=== PATIENT | female | born 1975 | race African-American/Black ===

== ENCOUNTER 2017-04-24 20:51 | Emergency (ER) | payer OTHER ==
[~2017-04-24] VITALS: Ht 162.6 cm; Wt 54.4 kg
[~2017-04-24 20:51] MED LIST: ALPRAZOLAM; AMBIEN 5 MG TABL5 M1 PO; AMBIEN PO; AMOXICILLIN875 MG PO; ATIVAN0.5 MG PO; BACTRIM DS TAB1 EACH PO; BENADRYL25 MG PO; CARISOPRODOL; CATAPRES-TTS 10.1 MG; CELEXA40 MG; CLONAZEPAM 1 MG1 M1; CLONAZEPAM 1 MG1 M1 PO; CLONIDINE0.1; DAZIDOX10 MG PO; DEPAKOTE ER500 MG PO; DILAUDID 4 MG TA4 M1 PO; FENTANYL PA50 MCG/HR TP; FLEXERIL; FLEXERIL PO; HYDROXYZINE HCL10 M1; IBUPROFEN 600600 M1 PO; KEPPRA 500 MG500 M1 PO; NORCO 10-325 T1 EACH; NORCO 5-325 TA1 EACH PO; OXYCONTIN10 M1 PO; PERCOCET 5-3251 EACH PO; POTASSIUM20 PO; PROPRANOLOL 8080 MG PO; PYRIDIUM200 MG PO; REMERON15 M1; SEROQUEL 100 M100 M1; SEROQUEL 100 M100 M1 PO; SEROQUEL XR50 MG; SKELAXIN; TIZANIDINE HCL 22 M1; TRAMADOL 50 MG50 MG; TYLENOL CODEINE; ULTRAM 50MG TAB50 MG PO; VISTARIL 25 MG25 M1 PO; XANAX 0.25 MG0.25 MG PO; XANAX 0.5 MG0.5 M1 PO; XANAX 0.5 MG0.5 MG PO; ZOFRAN ODT4 MG PO
[2017-04-24] MEDS ORDERED: SEROQUEL 25 MG25 M1 PO (21:04)
[2017-04-24] MEDS ORDERED: HALOPERIDOL 1 MG1 MG PO (21:04)
[2017-04-24] MEDS ORDERED: KLONOPIN1 MG PO (21:05)
[2017-04-24] MEDS ORDERED: DEPAKOTE250 MG PO (21:05)
[2017-04-24] MEDS ORDERED: HYDROCODONE-APA1 TA1 PO (21:06)
[2017-04-24] MEDS ORDERED: B12INJ IM (21:06)
[2017-04-24] MEDS ORDERED: IRON325 PO (21:07)
[2017-04-24 21:33] LABS: URINE BILIRUBIN NEGATIVE (Negative); URINE BLOOD NEGATIVE (Negative); URINE COLOR YELLOW; URINE GLUCOSE-RANDOM* NEGATIVE (Negative); URINE KETONES NEGATIVE (Negative); URINE LEUKOCYTES-REFLEX NEGATIVE (Negative); URINE PROTEIN (DIPSTICK) NEGATIVE (Negative); URINE UROBILINOGEN 0.2 E.U./dl (0.2-1.0)
[2017-04-24 21:42] LABS: AMP/METHAMP Negative (Negative); BARBITURATES Negative (Negative); BENZODIAZEPINES Negative (Negative); COCAINE Negative (Negative); METHADONE Negative (Negative); OPIATES Negative (Negative); PCP Negative (Negative); THC Negative (Negative)
[2017-04-24 22:06] LABS: ABSOLUTE NEUTROPHILS 5.3 thou/uL (1.4-8.2); BASOPHILS 0.4 % (0.0-2.0); HEMATOCRIT 36.2 % (37.0-47.0); HEMOGLOBIN 12.2 gm/dL (12.0-15.0); LYMPHOCYTES 26.3 % (24.0-44.0); MCH 30.3 pg (26.0-34.0); MCHC 33.7 g/dL (28.0-37.0); MCV 89.8 fL (80.0-100.0); MONOCYTES 9.2 % (1.0-8.0); PLATELET COUNT 375 thou/uL (150-400); POLYS 63.1 % (36.0-66.0); RBC 4.03 mil/uL (4.20-5.00); WBC 8.3 thou/uL (4.0-11.0)
[2017-04-24 22:08] LABS: MANUAL DIFF NO
[2017-04-24 22:16] LABS: ANION GAP 5 mmol/L (7-16); BUN 14 mg/dL (7-18); CALCIUM 8.8 mg/dL (8.5-10.1); CHLORIDE 106 mmol/L (98-107); CO2 29 mmol/L (21-32); CREATININE 0.8 mg/dL (0.6-1.0); GLUCOSE 84 mg/dL (74-106); POTASSIUM 4.3 mmol/L (3.5-5.1); SODIUM 140 mmol/L (136-145)
[2017-04-24 22:22] LABS: ALBUMIN 3.3 g/dL (3.4-5.0); ALKALINE PHOSPHATASE 65 U/L (46-116); SALICYLATE < 2.8 mg/dL (2.8-20.0); SGOT 16 U/L (15-37); SGPT 14 U/L (30-65); TOTAL BILIRUBIN 0.1 mg/dL (<0.1-1.0); TOTAL PROTEIN 6.8 g/dL (6.4-8.2)
[2017-04-24 22:39] LABS: ACETAMINOPHEN < 2 ug/mL (10-30)
[2017-04-25 02:00] VITALS: BP 112/71
[2017-04-25] MEDS ORDERED: ACETAMINOPHEN500 M1 PO (02:11)
[2017-04-25] MEDS ORDERED: ATIVAN1 MG PO (02:25)
== END 2017-04-25 02:23 ==
LOC: ER 20:51
PROVIDERS: Emergency Medicine
DX: F20.9 Schizophrenia, unspecified (principal); F19.10 Other psychoactive substance abuse, uncomplicated; N92.0 Excessive and frequent menstruation with regular cycle; S50.01XA Contusion of right elbow, initial encounter; T74.21XA Adult sexual abuse, confirmed, initial encounter; Y93.89 Activity, other specified; Y92.89 Other specified places as the place of occurrence of the external cause; Y99.8 Other external cause status; Y07.59 Other non-family member, perpetrator of maltreatment and neglect